=== PATIENT | male | born 1990 | race Caucasian/White ===

== ENCOUNTER 2023-12-11 23:10 | Emergency (ER) | payer SELFPAY ==
--- NOTE | 2023-12-12 00:15 | ED.SKININJ ---
HPI-Injury
General
Chief Complaint: Bite
Source: patient
Exam Limitations: none
Time Seen by Provider: 12/12/23 00:00
Nursing documentation reviewed up to this point in time: agreed with
History of Present Illness-Injury
Is this injury a work related problem?: No
Is pt an associate of [facility]/[place]?: No
Initial Injury comments:
Patient scratched by a bat on his left ponce 1 and half hours ago
Review of Systems
Review of Systems
All Other Systems: Not applicable
Phy Exam
Physical Exam
Physical Exam:
Physical Exam
General: no apparent distress, not acutely ill
Lungs: no acute respiratory distress.
Neuro: alert and oriented. no focal neurological deficits
Skin: no rash
Psychiatric: well kept. interactive and cooperative
Extremities: No appreciable skin abnormalities of the left ponce
Course
Orders/Labs/Results
Orders:
Orders
12/12/23 00:08
Rabies Immune Globulin/Pf [HyperRAB] 1,568 unit IM NOW STA
Rabies Vaccine (Pcec)/Pf [Rabavert Rabies Vacc W-Diluent] 2.5 unit IM .ONCE ONE
Vital Signs
Initial and Last Documented VS:
Initial Vital Signs
Temp Pulse Resp BP Pulse Ox
98.0 F 86 18 109/72 99
12/11/23 23:17 12/11/23 23:17 12/11/23 23:17 12/11/23 23:17 12/11/23 23:17
Last Documented Vital Signs
Temp Pulse Resp BP Pulse Ox
98.0 F 86 18 109/72 99
12/11/23 23:17 12/11/23 23:17 12/11/23 23:17 12/11/23 23:17 12/11/23 23:17
MDM/Problems Addressed
Differential Diagnosis Includes:
Possible rabies exposure from
MDM/Problems Addressed:
Rabies exposure
*Pulse Oximetry
Patient hypoxic: no
*Critical Care Note
Total Time (30-74mins, 75-104mins- exclusive of procedures): Not Applicable
Update Note
Update Note:
Patient exposed to a bat, will start immunoglobulin and rabies series
ED Attending Note
-
Portions of this chart may have been created with voice recognition software.� Occasional wrong word or��sound alike� substitutions may have occurred due to the inherent limitations of voice recognition software.
Discharge Plan
Departure
Patient Disposition: Home (Routine Discharge)
Date of Disposition: 12/12/23
Time of Disposition: 00:10
Patient with high blood pressure during this ER visit?: No
Condition: Good
Covid-19: Not Applicable
Discharge Problem:
Rabies
Instructions: Animal and human bites, Rabies
Prescriptions:
No Action
No Current Medications
0
Referrals:
UNKNOWN - PT DOES,NOT KNOW [Family Provider] -
Stand Alone Forms: Rabies Vaccine Post Exp Dosing
Activity Restrictions/Additional Instructions:
Return to the ER on December 14 for your second vaccine, then complete your vaccination series on December 18 and December 25 at the [facility]
Interventions
Interventions:
*Risk Screen - Suicide Last Done: 12/11/23 23:17
*General Assessment Last Done: 12/11/23 23:17
*Neglect/Abuse Screening Last Done: 12/11/23 23:17
ED-Skin Assessment Last Done: 12/12/23 00:01
Discharge Date and Time
Print Language: CZECH
[2023-12-12] MEDS: HyperRAB 1568 UNIT IM (00:38)
[2023-12-12] MEDS: RABAVERT RABIES VACC W-DILUENT 2.5 UNIT IM (00:43)
== END 2023-12-12 00:53 | disposition home or self-care (01) ==
LOC: EMR 23:10
PROVIDERS: EMERGENCY PHYSICIAN Emergency Medicine
DX: Z20.3 Contact with and (suspected) exposure to rabies (principal); S80.812A Abrasion, left lower leg, initial encounter; W55.89XA Other contact with other mammals, initial encounter; Z23 Encounter for immunization; Z29.14 Encounter for prophylactic rabies immune globulin
CPT/HCPCS: 99284; 90471; 96372; 90375; 90675

== ENCOUNTER 2023-12-19 08:17 | Outpatient (RCR) | payer OTHER, SELFPAY ==
[2023-12-14 14:30] VITALS: BP 129/85
[2023-12-14] MEDS: RABAVERT RABIES VACC W-DILUENT 2.5 UNIT IM (14:41)
[2023-12-19 08:39] VITALS: BP 111/82
[2023-12-19] MEDS: RABAVERT RABIES VACC W-DILUENT 2.5 UNIT IM (08:47)
== END 2024-01-12 23:59 | disposition home or self-care (01) ==
LOC: OID 08:17
PROVIDERS: ATTENDING PHYSICIAN Emergency Medicine
DX: Z20.3 Contact with and (suspected) exposure to rabies (principal); Z23 Encounter for immunization
CPT/HCPCS: 90471; 90675